=== PATIENT | female | born 1970 | race Caucasian/White ===

== ENCOUNTER 2021-03-12 09:43 | Emergency (ER) | payer OTHER ==
[~2021-03-12] VITALS: Ht 160 cm; Wt 95.3 kg
[2021-03-12] MEDS ORDERED: ACETAMINOPHEN 325 MG TABLET PO ONE (10:00)
[2021-03-12] MEDS ORDERED: LIDOCAINE 5% PATCH TD ONE ×5 (10:00→10:54)
[2021-03-12] MEDS ORDERED: ACETAMINOPHEN 325 MG TABLET ONE (10:08)
--- NOTE | 2021-03-12 10:41 | NUR ---
Patient is resting comfortably on gurney while using her personal elctronic device, NAD, calmer & not tearful anymore but patient wants more pain medicines, MD notified.
[2021-03-12] MEDS ORDERED: IBUP-1955 PO (11:00)
[2021-03-12] MEDS ORDERED: BACL10TA PO (11:00)
--- NOTE | 2021-03-12 11:11 | NUR ---
Patient discharged to home in stable condition with birsk steady gait. Written and verbal after care instructions given to patient. Patient verbalized understanding & compliance of instructions. Stressed follow up with primary doctor and inspector material disposition or return to ER for worsening s/s.
== END 2021-03-12 11:11 | disposition home or self-care (01) ==
LOC: ER 09:43
DX: S13.4XXA Sprain of ligaments of cervical spine, initial encounter (principal); R07.89 Other chest pain; V43.52XA Car driver injured in collision with other type car in traffic accident, initial encounter; Y92.411 Interstate highway as the place of occurrence of the external cause; R03.0 Elevated blood-pressure reading, without diagnosis of hypertension; I45.10 Unspecified right bundle-branch block; Z88.0 Allergy status to penicillin; Z87.42 Personal history of other diseases of the female genital tract
CPT/HCPCS: 36415; 70030-TC; 71045; 73502; 93005; A4663